=== PATIENT | female | born 1990 | race Two or more races ===

== ENCOUNTER 2022-11-17 13:08 | Emergency (ER) | payer OTHER ==
[~2022-11-17] VITALS: Ht 172.7 cm; Wt 106.1 kg
[2022-11-17 13:36] VITALS: BP 149/98
== END 2022-11-17 15:00 | disposition home or self-care (01) ==
LOC: ER 13:08
DX: S83.91XA Sprain of unspecified site of right knee, initial encounter (principal); W18.30XA Fall on same level, unspecified, initial encounter
CPT/HCPCS: 29505; 73562-RT; 99283-25